=== PATIENT | female | born 1995 | race Caucasian/White ===

== ENCOUNTER 2019-04-30 12:53 | Emergency (ER) | payer MEDICAID ==
[2019-04-30] MEDS ORDERED: FAMOTIDINE 20 MG/2 ML INJ IV ONE (20:19)
[2019-04-30] MEDS ORDERED: ONDANSETRON 4 MG/2 ML INJ IV ONE (20:19)
[2019-04-30] MEDS ORDERED: KETOROLAC 30 MG/1 ML INJ IV ONE (20:19)
[2019-04-30 20:34] LABS: Basophils % (Auto) 0.4 % (0.0-1.8); Eosinophils # (Auto) 0.1 K/mm3 (0.0-0.4); Lymphocytes # (Auto) 2.8 K/mm3 (1.2-5.4); Lymphocytes % (Auto) 31.3 % (13.4-35.0); Mean Corpuscular HGB Conc 36 % (30-34); Mean Corpuscular Volume 88 fl (79-97); Monocytes # (Auto) 0.6 K/mm3 (0.0-0.8); Monocytes % (Auto) 6.3 % (0.0-7.3); Platelet Count 343 K/mm3 (140-440); Red Blood Count 4.57 M/mm3 (3.65-5.03); Red Cell Distribution Width 12.8 % (13.2-15.2)
[2019-04-30 20:36] LABS: Hematocrit 40.1 % (30.3-42.9); Hemoglobin 14.4 gm/dl (10.1-14.3)
[2019-04-30 20:56] LABS: Alanine Aminotransferase 10 units/L (7-56); Albumin 4.2 g/dL (3.9-5); BUN/Creatinine Ratio 15; Blood Urea Nitrogen 9 mg/dL (7-17); Calcium 9.2 mg/dL (8.4-10.2); Hemolysis Index 10
[2019-04-30 21:07] LABS: Bacteria,Urine 2+ /HPF (Negative); Bilirubin,Urine NEG (Negative); Blood,Urine MOD (Negative); Color,Urine Yellow (Yellow); Mucus,Urine 3+ /HPF; Urobilinogen,Urine < 2.0 mg/dL (<2.0)
[2019-04-30 21:08] LABS: WBC,Urine > 182.0 /HPF (0.0-6.0)
[2019-04-30] MEDS ORDERED: SODIUM CHLORIDE 0.9% 1000 ML 1,000 ML IV ONE (22:12)
[2019-04-30] MEDS ORDERED: cefTRIAXone/NS 1 GM/50 ML 1 GM/50 ML BAG IV ONE (22:12)
--- NOTE | 2019-04-30 23:01 | Ultrasound Report ---
US OB transvaginal, US OB <= 14 weeks fetus INDICATION / CLINICAL INFORMATION: abdominal pain - . COMPARISON: None available. FINDINGS: No priors. Transabdominal and transvaginal imaging was performed. Uterus measures 8.9 x 5.4 x 6.5 cm. The endometrial echo complex measures 15 mm, upper limits of norm al. No endometrial fluid collections are seen. There is a mildly complex 2 cm left ovarian cyst. Right ovary is unremarkable. Trace free fluid is noted in the cul-de-sac. IMPRESSION: 1. No sonographic evidence of intrauterine . 2. Mildly complex 2 cm left ovarian cyst. Correlation with serial beta hCG levels and short-term sonographic follow-up recommended. Signer Name: Binh Richards MD Signed: 04/30/2019 10:56 PM Workstation Name: [id number]
--- NOTE | 2019-04-30 23:43 | Emergency Department Report ---
ED Abdominal Pain HPI - General Chief Complaint: Abdominal Pain Stated Complaint: FLANK PAIN Source: patient Mode of arrival: Ambulatory Limitations: No Limitations - History of Present Illness Initial Comments: Patient is a A0 23-year-old female with no past medical history presents to the ED record acute onset persistent bilateral flank pain that radiates to the suprapubic area with intermittent nausea and vomiting for the last 3 days. Patient also complains of dysuria, urinary frequency and urgency, low back pain level appetite. Patient denies fever, chills, dizziness, syncope, chest pain, shortness of breath, diarrhea, cough, sore throat or vaginal blee ding and vaginal discharge. Patient unsure as to her last major cycle, stating that a menstrual cycle is irregular. MD Complaint: abdominal pain, flank pain (Bilateral flank pain), other (nausea and vomiting) -: Sudden, days(s) (3) Location: suprapubic, L flank, R flank, bilateral flank Radiation: suprapubic, L flank, R flank, bilateral flank Migration to: no migration Severity: severe Severity scale (0 -10): 7 Quality: cramping, aching, sharp Consistency: constant Improves With: nothing Worsens With: nothing Associated Symptoms: denies other symptoms, nausea, vomiting, dysuria, anorexia. denies: diarrhea, fever, chills, constipation, hematemesis, hematochezia, melena - Related Data Previous Rx's Medication Instructions Recorded Last Taken Type Famotidine [Pepcid] 20 mg PO BID #30 tablet 07/25/14 Unknown Rx Prednisone [Prednisone 5 mg (6-Day 5 mg PO .TAPER #1 tab.ds.pk 07/25/14 Unknown Rx Pack, 21 Tabs)] diphenhydrAMINE [Benadryl] 25 mg PO Q6HR PRN #30 capsule 07/25/14 Unknown Rx Acetaminophen [Acetaminophen TAB] 500 mg PO Q6HR PRN #30 tablet 04/30/19 Unknown Rx Promethazine [Phenergan] 25 mg PO Q6HR PRN #30 tab 04/30/19 Unknown Rx cephALEXin [Keflex] 500 mg PO Q6HR #40 capsule 04/30/19 Unknown Rx Allergies Allergy/AdvReac Type Severity Reaction Status Date / Time No Known Allergies Allergy Verified 07/15/14 14:48 ED Review of Systems ROS: Stated complaint: FLANK PAIN Other details as noted in HPI Constitutional: denies: chills, fever Eyes: denies: eye pain, eye discharge, vision change ENT: denies: ear pain, throat pain Respiratory: denies: cough, shortness of breath, wheezing Cardiovascular: denies: chest pain, palpitations Endocrine: no symptoms reported Gastrointestinal: abdominal pain (suprapubic and bilateral flank pain), nausea, vomiting. denies: diarrhea Genitourinary: urgency, dysuria, frequency, abnormal menses (irregular menstrual cycle). denies: discharge, dyspareunia Musculoskeletal: back pain (low back pain). denies: joint swelling, arthralgia Skin: denies: rash, lesions Neurological: denies: headache, weakness, paresthesias Psychiatric: denies: anxiety, depression Hematological/Lymphatic: denies: easy bleeding, easy bruising ED Past Medical Hx - Past Medical History Previous Medical History?: No Hx Hypertension: No Hx Congestive Heart Failure: No Hx Diabetes: No Hx Deep Vein Thrombosis: No Hx Renal Disease: No Hx Sickle Cell Disease: No Hx Seizures: No Hx Asthma: No Hx COPD: No Hx HIV: No Additional medical history: vaginal x 1 - Surgical History Past Surgical History?: No - Social History Smoking Status: Never Smoker Substance Use Type: None - Medications Home Medications: Home Medications Medication Instructions Recorded Confirmed Last Taken Type Famotidine [Pepcid] 20 mg PO BID #30 tablet 07/25/14 Unknown Rx Prednisone [Prednisone 5 mg (6-Day 5 mg PO .TAPER #1 tab.ds.pk 07/25/14 Unknown Rx Pack, 21 Tabs)] diphenhydrAMINE [Benadryl] 25 mg PO Q6HR PRN #30 capsule 07/25/14 Unknown Rx Acetaminophen [Acetaminophen TAB] 500 mg PO Q6HR PRN #30 tablet 04/30/19 Unknown Rx Promethazine [Phenergan] 25 mg PO Q6HR PRN #30 tab 04/30/19 Unknown Rx cephALEXin [Keflex] 500 mg PO Q6HR #40 capsule 04/30/19 Unknown Rx ED Physical Exam - General Limitations: No Limitations General appearance: alert, in no apparent distress - Head Head exam: Present: atraumatic, normocephalic, normal inspection - Eye Eye exam: Present: normal appearance, PERRL, EOMI Pupils: Present: normal accommodation - ENT ENT exam: Present: normal exam, normal orophraynx, mucous membranes moist, TM's normal bilaterally, normal external ear exam - Neck Neck exam: Present: normal inspection, full ROM - Respiratory Respiratory exam: Present: normal lung sounds bilaterally. Absent: respiratory distress, wheezes, rales, rhonchi, stridor, chest wall tenderness, accessory muscle use - Cardiovascular Cardiovascular Exam: Present: regular rate, normal rhythm, normal heart sounds. Absent: systolic murmur, diastolic murmur, rubs, gallop - GI/Abdominal GI/Abdominal exam: Present: soft, tenderness (palpable moderate suprapubic and bilateral flank tenderness), normal bowel sounds. Absent: guarding, rebound, hyperactive bowel sounds, hypoactive bowel sounds, organomegaly - Bi-manual exam: Present: other (pelvic exam deferred) - Extremities Exam Extremities exam: Present: normal inspection, full ROM, normal capillary refill. Absent: pedal edema, joint swelling - Back Exam Back exam: Present: normal inspection, full ROM. Absent: tenderness, CVA tenderness (R), CVA tenderness (L), muscle spasm, paraspinal tenderness - Neurological Exam Neurological exam: Present: alert, oriented X3, CN II-XII intact, normal gait, reflexes normal - Psychiatric Psychiatric exam: Present: normal affect, normal mood - Skin Skin exam: Present: warm, dry, intact, normal color. Absent: rash ED Medical Decision Making - Lab Data Result diagrams: 04/30/19 20:23 04/30/19 20:23 - Radiology Data Radiology results: report reviewed, image reviewed Findings [facility] [address] [place] [address] Ultrasound Report Signed Patient: CARROL ALMANZAR MR#: [id number] : 1995 Acct:[id number] Age/Sex: 23 / F ADM Date: 04/30/19 Loc: ED Attending Dr: Ordering Physician: PAULA CRAIG Date of Service: 04/30/19 Procedure(s): US OB transvaginal Accession Number(s): [id number] cc: PAULA CRAIG US OB transvaginal, US OB <= 14 weeks fetus INDICATION / CLINICAL INFORMATION: abdominal pain - . COMPARISON: None available. FINDINGS: No priors. Transabdominal and transvaginal imaging was performed. Uterus measures 8.9 x 5.4 x 6.5 cm. The endometrial echo complex measures 15 mm, upper limits of normal. No endometrial fluid collections are seen. There is a mildly complex 2 cm left ovarian cyst. Right ovary is unremarkable. Trace free fluid is noted in the cul-de-sac. IMPRESSION: 1. No sonographic evidence of intrauterine . 2. Mildly complex 2 cm left ovarian cyst. Correlation with serial beta hCG levels and short-term sonographic follow-up recommended. Signer Name: Binh Richards MD Signed: 04/30/2019 10:56 PM Workstation Name: [id number] Transcribed By: SW Dictated By: Binh Richards MD Electronically Authenticated By: Binh Richards MD Signed Date/Time: 04/30/192255 DD/ 53 TD/TT: - Medical Decision Making This is a 23-year-old female who is a A0 with an undetermined gestational age who presents to the ED with diffuse abdominal pain that radiates to the left lower quadrant and left flank for one week, worse in the last 2 days. Patient also complains of dysuria, urinary frequency and urgency. Patient states that her menstrual cycle has been irregular and was unsure as to whether she was p regnant or not. In the ED, patient is alert and oriented 3 and is not in distress but appears to be uncomfortable due to the physical exam. Lab test results were reviewed and shows a positive hCG Quant of 226.3 and a significant urinary tract infection characterized by >182 WBCs, large leukocyte esterase and positive nitrites. Patient was treated in the ED for pain initially before the hCG Quant test resulted. Patient was also treated for nausea and vomiting and also received normal saline 1 L IV bolus. Patient received Rocephin 1 g IV 1 for UTI. Transvaginal ultrasound shows no sonographic evidence of intrauterine and a mildly complex 2 cm left ovarian cyst. The at this time may still be very highly to detect by ultrasound. Patient was discharged home on pain medications, antibiotics, antiemetics and is advised to return to the ED in 2 days or follow-up with her FINANCIAL ADVISOR physician 48 hours for reevaluation and serial hCG Quant studies to ascertain the viability of the . - Differential Diagnosis Ectopic ; Pyelonephritis; UTI; IUP; ovarian cysts Critical care attestation.: If time is entered above; I have spent that time in minutes in the direct care of this critically ill patient, excluding procedure time. ED Disposition Clinical Impression: Acute urinary tract infection, Nausea and vomiting in , Complex cyst of left ovary Abdominal pain in Qualifiers: Trimester: first trimester Qualified Code(s): O26.891 - Other specified related conditions, first trimester; R10.9 - Unspecified abdominal pain Disposition: TO HOME OR SELFCARE Is pt being admited?: No Does the pt Need Aspirin: No Condition: Stable Instructions: Urinary Tract Infection in Women (ED), Abdominal Pain in (ED), (ED), Ovarian Cyst (ED) Additional Instructions: LOS RESULTADOS DE AGUILAR PRUEBA DEMUESTAN QUE EST ACTUALMENTE EMBARAZADA, STEVIE EL EMBARAZO ES DEMASIADO TEMPRANO PARA CARACTERIZARSE POR ULTRASONIDO. LOS RESULTADOS DE LA PRUEBA DE LABORATORIO TAMBIN MOSTRAN ARABELLA INFECCIN SI GNIFICATIVA DEL TRACTO URINARIO. TOME MEDICAMENTOS CON ALIMENTOS, ELOY MUCHOS LQUIDOS Y SIGA CON AGUILAR MDICO ob / gineclogo EN 24-48 HORAS PARA REEVALUACIN. REGRESE AL DEPARTAMENTO DE EMERGENCIA INMEDIATAMENTE SI LOS SNTOMAS SE ENFORAN. Prescriptions: Acetaminophen [Acetaminophen TAB] 500 mg PO Q6HR PRN #30 tablet PRN Reason: Pain , Severe (7-10) cephALEXin [Keflex] 500 mg PO Q6HR #40 capsule Promethazine [Phenergan] 25 mg PO Q6HR PRN #30 tab PRN Reason: Nausea Referrals: MARCOS MARQUEZ MD [Staff Physician] - 2-3 Days (Return to the ED or to your Diana-Sales Program Coordinator physician in 48 hours for serial hcg quant studies ) Time of Disposition: 23:47 Print Language: UZBEK
== END 2019-05-01 00:15 | disposition home or self-care (01) ==
LOC: ED 12:53
DX: O23.41 Unspecified infection of urinary tract in pregnancy, first trimester (principal); O21.9 Vomiting of pregnancy, unspecified; O34.81 Maternal care for other abnormalities of pelvic organs, first trimester; N83.202 Unspecified ovarian cyst, left side; Z3A.01 Less than 8 weeks gestation of pregnancy
CPT/HCPCS: 36415; 76801; 76817; 80053; 81001; 83690; 84702; 84703; 85025; 96365; 96375; 99284; J0696; J1885; J2405; J7030

== ENCOUNTER 2019-05-02 22:11 | Emergency (ER) | payer SELFPAY ==
[2019-05-02 22:26] VITALS: BP 120/55
--- NOTE | 2019-05-03 00:24 | Emergency Department Report ---
ED General Adult HPI - General Chief complaint: Medical Clearance Stated complaint: RECALL Source: patient Mode of arrival: Ambulatory Limitations: No Limitations - History of Present Illness Initial comments: Patient is a A0 23-year-old female is approximately 4 weeks gestation who presented to the ED for repeat beta hCG Quant following initial potassium Quant was characteristically low 48 hours ago when the patient initially discovered that she was . Patient had presented to the ED with lower abdominal pain and after extensive workup was found to be and hCG Quant of 226. Patient is currently on oral antibiotics for UTI that was diagnosed during her initial visit 48 hours ago. Patient returned to the ED today for repeat serial hCG Quant in order to assess the viability of her that was diagnosed with ago. Patient denies nausea, vomiting, chest pain, shortness of breath, abdominal pain, dizziness, vaginal bleeding, vaginal discharge, dysuria, urinary frequency and urgency and low back pain. MD Complaint: Repeat hCG quant test -: Sudden, days(s) (2) Location: abdomen Radiation: non-radiation Severity scale (0 -10): 0 Quality: dull Improves with: none Worsens with: none Associated Symptoms: denies other symptoms. denies: confusion, chest pain, cough, diaphoresis, fever/chills, headaches, loss of appetite, malaise, nausea/vomiting, rash, shortness of breath, syncope, weakness Treatments Prior to Arrival: none - Related Data Previous Rx's Medication Instructions Recorded Last Taken Type Famotidine [Pepcid] 20 mg PO BID #30 tablet 07/25/14 Unknown Rx Prednisone [Prednisone 5 mg (6-Day 5 mg PO .TAPER #1 tab.ds.pk 07/25/14 Unknown Rx Pack, 21 Tabs)] diphenhydrAMINE [Benadryl] 25 mg PO Q6HR PRN #30 capsule 07/25/14 Unknown Rx Acetaminophen [Acetaminophen TAB] 500 mg PO Q6HR PRN #30 tablet 04/30/19 Unknown Rx Promethazine [Phenergan] 25 mg PO Q6HR PRN #30 tab 04/30/19 Unknown Rx cephALEXin [Keflex] 500 mg PO Q6HR #40 capsule 04/30/19 Unknown Rx Allergies Allergy/AdvReac Type Severity Reaction Status Date / Time No Known Allergies Allergy Verified 07/15/14 14:48 ED Review of Systems ROS: Stated complaint: RECALL Other details as noted in HPI Constitutional: denies: chills, fever Eyes: denies: eye pain, eye discharge, vision change ENT: denies: ear pain, throat pain Respiratory: denies: cough, shortness of breath, wheezing Cardiovascular: denies: chest pain, palpitations Endocrine: no symptoms reported Gastrointestinal: denies: abdominal pain, nausea, diarrhea Genitourinary: denies: urgency, dysuria, discharge Musculoskeletal: denies: back pain, joint swelling, arthralgia Skin: denies: rash, lesions Neurological: denies: headache, weakness, paresthesias Psychiatric: denies: anxiety, depression Hematological/Lymphatic: denies: easy bleeding, easy bruising ED Past Medical Hx - Past Medical History Previous Medical History?: No Hx Hypertension: No Hx Congestive Heart Failure: No Hx Diabetes: No Hx Deep Vein Thrombosis: No Hx Renal Disease: No Hx Sickle Cell Disease: No Hx Seizures: No Hx Asthma: No Hx COPD: No Hx HIV: No Additional medical history: vaginal x 1 - Surgical History Past Surgical History?: No - Social History Smoking Status: Never Smoker Substance Use Type: None - Medications Home Medications: Home Medications Medication Instructions Recorded Confirmed Last Taken Type Famotidine [Pepcid] 20 mg PO BID #30 tablet 07/25/14 Unknown Rx Prednisone [Prednisone 5 mg (6-Day 5 mg PO .TAPER #1 tab.ds.pk 07/25/14 Unknown Rx Pack, 21 Tabs)] diphenhydrAMINE [Benadryl] 25 mg PO Q6HR PRN #30 capsule 07/25/14 Unknown Rx Acetaminophen [Acetaminophen TAB] 500 mg PO Q6HR PRN #30 tablet 04/30/19 Unknown Rx Promethazine [Phenergan] 25 mg PO Q6HR PRN #30 tab 04/30/19 Unknown Rx cephALEXin [Keflex] 500 mg PO Q6HR #40 capsule 04/30/19 Unknown Rx ED Physical Exam - General Limitations: No Limitations General appearance: alert, in no apparent distress - Head Head exam: Present: atraumatic, normocephalic, normal inspection - Eye Eye exam: Present: normal appearance, PERRL, EOMI - ENT ENT exam: Present: normal exam, normal orophraynx, mucous membranes moist, TM's normal bilaterally, normal external ear exam - Neck Neck exam: Present: normal inspection, full ROM - Respiratory Respiratory exam: Present: normal lung sounds bilaterally. Absent: respiratory distress, wheezes, rales, stridor, chest wall tenderness, decreased breath sounds, prolonged expiratory - Cardiovascular Cardiovascular Exam: Present: regular rate, normal rhythm, normal heart sounds. Absent: systolic murmur, diastolic murmur, rubs, gallop - GI/Abdominal GI/Abdominal exam: Present: soft, normal bowel sounds. Absent: tenderness, guarding - Extremities Exam Extremities exam: Present: normal inspection, full ROM, normal capillary refill - Back Exam Back exam: Present: normal inspection, full ROM. Absent: tenderness, CVA t enderness (L), muscle spasm, paraspinal tenderness - Neurological Exam Neurological exam: Present: alert, oriented X3, CN II-XII intact, normal gait, reflexes normal - Psychiatric Psychiatric exam: Present: normal affect, normal mood - Skin Skin exam: Present: warm, dry, intact, normal color. Absent: rash ED Course Vital Signs 05/02/19 22:24 Temperature 98.5 F Pulse Rate 87 Respiratory 16 Rate Blood Pressure 120/55 O2 Sat by Pulse 99 Oximetry ED Medical Decision Making - Medical Decision Making This is a A0 23-year-old female who is approximately 4 sharon gestation and who presented to the ED for serial hCG Quant repeat test following initial test that was performed 2 days ago that revealed a hCG Quant of 226.3 with a negative transvaginal ultrasound that did not reveal any single IUP. Patient had been advised to return to the ED within 48 hours for serial hCG Quant test. In the ED visit today the patient had labs drawn for repeat serial hCG Quant studies. Lab test results were reviewed and showed beta hCG Quant of 675.1 compared with the most recent beta hCG Quant of 226.348 hours ago. This therefore means that the is viable as the hCG Quant has more than doubled in value as expected. The patient was discharged home and advised to follow-up with her COMMUNICATIONS BILLING ANALYST physician for further evaluation 5-7 days. Patient was have advised her to continue taking her previously prescribed antibiotics for urinary tract infection and to return to the ED immediately if symptoms get worse. - Differential Diagnosis Ectopic ; in early stage; UTI Critical care attestation.: If time is entered above; I have spent that time in minutes in the direct care of this critically ill patient, excluding procedure time. ED Disposition Clinical Impression: at early stage, Elevated level of quantitative hCG for gestational a ge in early , Viable in first trimester Disposition: TO HOME OR SELFCARE Is pt being admited?: No Does the pt Need Aspirin: No Condition: Stable Instructions: (ED) Additional Instructions: Los resultados de las pruebas de laboratorio muestran un embarazo viable ya que el valor de beta hCG Quant ray duplicado sánchez valor en comparacin con los resultados ms recientes de hace 48 horas. Por lo tanto, tome medicamentos que se recetaron previamente para la infeccin aguda del tracto urinario, modesto un seguimiento en el mdico obstetra / gineclogo en 5-7 lopez para la reevaluacin. Regrese al servicio de urgencias de inmediato si los sntomas empeoran. Referrals: WILLIAM MARQUEZ MD [Staff Physician] - 7-10 days Time of Disposition: 01:24 Print Language: UKRAINIAN
== END 2019-05-03 01:51 | disposition home or self-care (01) ==
LOC: ED 22:11
DX: O02.81 Inappropriate change in quantitative human chorionic gonadotropin (hCG) in early pregnancy (principal); O26.891 Other specified pregnancy related conditions, first trimester; R10.30 Lower abdominal pain, unspecified; Z79.899 Other long term (current) drug therapy; Z3A.01 Less than 8 weeks gestation of pregnancy
CPT/HCPCS: 36415; 84702